=== PATIENT | female | born 1950 | race Caucasian/White ===

== ENCOUNTER 2016-11-06 06:55 | Emergency (ER) | payer BC ==
[2016-11-06 07:00] VITALS: BP 142/69; BMI 29.9
[2016-11-06] MEDS ORDERED: XYLOCAINE 1% and EPINEPHRINE 1:100,000 IJ ONE (07:31)
[2016-11-06] MEDS ORDERED: ADACEL TDaP IM ONE ×2 (07:31→07:36)
[2016-11-06] MEDS ORDERED: XYLOCAINE 1% and EPINEPHRINE 1:100,000 ONE (07:33)
[2016-11-06] MEDS ORDERED: HYDROGEN PEROXIDE 3% ONE (09:20)
[2016-11-06] MEDS ORDERED: NEOSPORIN OINT ONE (09:25)
--- NOTE | 2016-11-06 09:30 | DR.GENAD ---
HPI - PCP Primary Care Physician: ildefonso gudino - HPI Comment HPI Comment: PATIENT FELL AND SUSTAIN FOREHEAD LACERATION. AREA CUT WITH VISIBLE SKULL. NO LOC. MILD HEADACHE. - Complaint/Symptoms Chief Complaint Doctors Comments: LEFT FOREHEAD LACERATIO, FALL. Chief Complaint:: patient stated she was wearing her cpap last night when she got up and fell causeing her to cut her forehead. - Nurses notes reviewed Nurses Notes Review: Yes - Source History Provided: Patient - Mode of Arrival Mode of Arrival: Ambulatory - Timing Onset of Chief Complaint: 11/06/16 Came on: Suddenly - Duration Duration: Constant Duration: Hours - Severity Severity: Moderate PMH - PMH Past Medical History: Yes Past Medical History: Hypertension, Hypothyroidism Past Surgical History: Yes Surgical History: Appendectomy, Cholecystectomy, Hysterectomy - Family History History of Family Medical Conditions: No - Social History Does patient currently use any type of tobacco product: No Have you used tobacco products in the last 12 months: No Type of Tobacco Use: None Does any household member use tobacco: No Alcohol Use: Rarely Do you use any recreational Drugs:: No Lives With: Family Lives Where: Home - infectious screening In the last 2 months have you had wt loss of >10#?: NO Have you had fever, night sweats or hemotysis?: No Have you traveled outside the country in the last 6 months?: No Isolation: Standard ROS - Review of Systems Constitutional: No Symptoms Reported Eyes: No Symptoms Reported ENTM: No Symptoms Reported Respiratoy: No Symptoms Reported Cardiovascular: No Symptoms Reported Gastrointestinal/Abdominal: No Symptoms Reported Genitourinary: No Symptoms Reported Neurological: No Symptoms Reported Musculoskeletal: Other (FOREHEAD PAIN) Integumentary: Other (9CM LAC FOREHEAD.) Hematologic/Lymphatic: No Symptoms Reported Endocrine: No Symptoms Reported All Other Systems: Reviewed and Negative PE - Vital Signs Vitals: Temperature 98.9 F Pulse Rate 94 Respiratory Rate 16 Blood Pressure 142/69 O2 Sat by Pulse Oximetry 100 - General Limitations: No Limitations General Appearance: Alert - Head Head Exam: Other (LACERATION FOREHEAD) - Eyes Eye exam: Normal Appearance - ENT ENT Exam: Normal External Ear Exam External Ear Exam: Normal External Inspection TM/Canal Exam: Bilateral Normal Nose Exam: Normal Nose Exam Mouth Exam: Normal Inspection Throat Exam: Normal Inspection - Neck Neck Exam: Trachea Midline. negative: Tenderness, Meningismus, Lymphadenopathy - Chest Chest Inspection: Symmetric Chest Wall Rise - Respiratory Respiratory Exam: Normal Lung Sounds Bilat Respiratory Exam: Bilateral Clear to Auscultation - Cardiovascular Cardiovascular Exam: Regular Rate, Normal Rhythm, Normal Heart Sounds - Abdominal Exam Abdominal Exam: Normal Bowel Sounds, Soft. negative: Tenderness - Extremities Extremities Exam: Normal Inspection - Back Back Exam: Normal Inspection - Neurologic Neurological Exam: Alert, Oriented X3, CN II-XII Intact, Normal Gait, Reflexes Normal. negative: Motor Sensory Deficit - Psychiatric Psychiatric Exam: Normal Affect, Normal Mood - Skin Skin Exam: Erythema MDM - Differential Diagnosis Differential Diagnosis: FOREHEAD LAC, SCALP/FACE CONTUSION, Course - Treatment Treatment: SEE ORDERS. LAC REPAIRED. TD IM IN ED. - Reevaluation 1st: Improved - Education/Counseling Education/Counseling: Patient, Education Educated On: Diagnosis, Needs for Follow Up ROR - XRAY XRAY Interpreted by: Radiologist XRAY Findings: REPORT DISCUSS WITH PATIENT. Procedures - Laceration/Wound Repair Left Face Wound Length (cm): 9 Wound's Depth, Shape: Linear Wound Explored: clean Betadine Prep?: No Anesthesia: 1% Lidocaine Volume Anesthetic (ccs): 10 Wound Debrided: moderate Wound Repaired With: sutures Suture Size/Type: 5:0, Ethilion Number of Sutures: 24 Layer Closure?: Yes Deep Layer Suture Size/Type: 5:0, Vicryl Sterile Dressing Applied?: Yes Splint Applied?: No Sling Applied?: No Progress: 3 S/C SUTURE USING 5-O VINYL UNDER STERILE CONDITION. CONTINUOS SUTURE TO SKIN WITH 5-0 ETHILION. - Diagnosis Discharge Problem: Laceration of forehead Qualifiers: Encounter type: initial encounter Qualified Code(s): S01.81XA - Laceration without foreign body of other part of head, initial encounter - Discharge Plan Condition: Stable Prescriptions: Acetaminophen W/ Codeine [Tylenol/Codeine #3 300-30 mg] 1 tab PO Q4-6H PRN #12 tab PRN Reason: Pain Ibuprofen [MOTRIN TAB 600 MG *] 600 mg PO TID PRN #20 tab PRN Reason: Pain/Inflammation - Follow ups/Referrals Follow ups/Referrals: ILDEFONSO GUDINO [Primary Care Provider] - 3 days - Instructions Instructions: Laceration Care, Adult, [id number], Facial or Scalp Contusion, [id number] Additional Instructions: SUTURE OUT IN 10 DAYS. RETURN TO ED IF WORSE.
--- NOTE | 2016-11-06 09:40 | CT ---
HEAD CT WITHOUT IV CONTRAST CLINICAL INDICATION: Fall with forehead laceration TECHNIQUE: Axial CT images from skull base to vertex without IV contrast.Dose reduction techniques i ncluding Automated Exposure Control (AEC) and adjustment of mA and kV were utlized. COMPARISON: None FINDINGS: There is no abnormal brain parenchymal density. There is no evidence of acute infarction, intracran ial hemorrhage, mass or mass effect, or abnormal extra-axial collection. The density of the larger d ural venous sinuses is normal. The ventricles are normal in size, shape and position. The skull base and calvarium are normal. The included paranasal sinuses and mastoid air cells are predominantly cl ear. Left frontal scalp laceration IMPRESSION: 1. No acute intracranial abnormality. 2. Left frontal scalp laceration. Reported By:
== END 2016-11-06 09:58 | disposition home or self-care (01) ==
LOC: ER 06:55
PROC: 0WQ20ZZ Repair Face, Open Approach (ICD-10-PCS; principal; 2016-11-06)
DX: S01.81XA Laceration without foreign body of other part of head, initial encounter (principal); W01.198A Fall on same level from slipping, tripping and stumbling with subsequent striking against other object, initial encounter; Y92.9 Unspecified place or not applicable
CPT/HCPCS: 12015; 70450; 90471; 99282; J2001